=== PATIENT | female | born 1955 | race Caucasian/White ===

== ENCOUNTER 2019-08-19 09:48 | Outpatient (REF) | payer MEDICAID, SELFPAY ==
[2019-08-19 22:08] LABS: Hemoglobin A1C 5.9 % (4.5-6.2)
[2019-08-19 23:26] LABS: Anion Gap 9.5 mmol/L (3-11); BUN 14 mg/dL (7-18); CO2 27.5 mmol/L (21.0-32.0); Calcium 8.3 mg/dL (8.5-10.1); Calculated LDL 123 mg/dL; Chloride 106 mmol/L (98-107); Cholesterol 182 mg/dL (50-200); Glucose 95 mg/dL (70-100); HDL Cholesterol 47 mg/dL (40-60); Potassium 4.4 mmol/L (3.5-5.1); Sodium 143 mmol/L (136-145); Triglyceride 62 mg/dL (30-150)
== END 2019-08-19 10:08 ==
LOC: NCHCN 09:48
PROVIDERS: PCP Family Medicine; Visit Provider Family Medicine
DX: I10 Essential (primary) hypertension (principal); F34.1 Dysthymic disorder; Z00.00 Encounter for general adult medical examination without abnormal findings
CPT/HCPCS: 80048; 80061; 83036

== ENCOUNTER 2021-02-22 23:13 | Outpatient (REF) | payer MEDICAID, SELFPAY ==
[2021-02-22 16:10] LABS: ALT 24 U/L (14-59); AST 20 U/L (15-37); Albumin 3.6 g/dL (3.4-5.0); Alkaline Phosphatase 86 U/L (46-116); Anion Gap 9.6 mmol/L (3-11); BUN 13 mg/dL (7-18); Bilirubin, Total 0.5 mg/dL (0.2-1.0); CO2 26.4 mmol/L (21.0-32.0); CREATININE 0.9 mg/dL (0.55-1.02); Calcium 8.8 mg/dL (8.5-10.1); Chloride 106 mmol/L (98-107); FREE T4 1.29 ng/dL (0.76-1.46); Glucose 88 mg/dL (74-106); Potassium 4.1 mmol/L (3.5-5.1); Sodium 142 mmol/L (136-145); Total Protein 6.6 g/dL (6.4-8.2)
[2021-02-22 16:47] LABS: Calculated LDL 105 mg/dL (<100); Cholesterol 173 mg/dL (<200); HDL Cholesterol 46 mg/dL (40-60); Triglyceride 110 mg/dL (<150); Vitamin B12 346 pg/mL (193-986)
== END 2021-02-22 23:14 | disposition home or self-care (01) ==
LOC: NCHCN 23:13
PROVIDERS: PCP Family Medicine; Visit Provider Family Medicine
DX: E11.9 Type 2 diabetes mellitus without complications (principal); J44.9 Chronic obstructive pulmonary disease, unspecified; G62.9 Polyneuropathy, unspecified
CPT/HCPCS: 80053; 80061; 82607; 84439

== ENCOUNTER 2022-08-03 10:27 | Emergency (ER) | payer MEDICARE, SELFPAY ==
[2022-08-03] VITALS (43 sets, daily range): BP systolic 96–174; BP diastolic 64–99; PULSE 54–79; RESP 11–21; TEMP 36.4; O2SAT 94–100
--- NOTE | 2022-08-03 10:15 | RT.EKG_ITS ---
APPROVED REPORT Exam: Resting ECG Reason for Exam: chest pain Patient Location: E HR:65 bpm ECG Measurements Heart Rate 65 AXIS NV 142 P 62 QRSd 104 QRS 62 QT 394 T 60 QTc 411 Conclusion Sinus rhythm...normal P axis, V-rate 60- 99
--- NOTE | 2022-08-03 10:15 | RT.EKG_ITS ---
APPROVED REPORT Exam: Resting ECG Reason for Exam: chest pain Patient Location: E HR:65 bpm ECG Measurements Heart Rate 65 AXIS ID 80 P 0 QRSd 108 QRS 66 QT 388 T 60 QTc 405 Conclusion Sinus rhythm...normal P axis, V-rate 60- 99
--- NOTE | 2022-08-03 10:45 | DI.CT_ITS ---
Exam(s) CT ABDOMEN PELVIS W EXAM: CT ABDOMEN PELVIS W CLINICAL HISTORY: epigastric and ruq abdominal pain, ttp, no bm 2wk TECHNIQUE: Imaging Protocol: Axial computed tomography images with coronal and sagittal reformatted images were created and reviewed CONTRAST MATERIAL: Intravenous: Omnipaque 350 Contrast volume:100 mL Oral: No COMPARISON: No exams were available for comparison FINDINGS: ABDOMEN: Lung Bases: There is scarring seen in the lung bases. Coronary artery calcifications are present. Liver: Normal density. There is a cyst seen in the left lobe of the liver. No suspicious hepatic mas ses are present. Portal, Superior Mesenteric, and Splenic Veins: Unremarkable. Gallbladder and Biliary Tract: Status post cholecystectomy. No biliary ductal dilatation is present. Pancreas: Normal density, no abnormal calcifications or inflammatory process. Spleen: Normal. Adrenals: No masses seen. Kidneys: Normal size, contour and axis. No radiodense stones or obstructive uropathy. No masses seen. Abdominal Aorta: Abdominal portion non-dilated. Atherosclerosis is present. Bowel: No obstruction or bowel wall thickening. No evidence of appendicitis. There is a moderate amou nt of stool throughout the colon which may reflect constipation. Peritoneal Cavity: No ascites, collection or mesenteric inflammatory response. No free air. Lymph Nodes: Within normal limits. Bones: Within normal limits for the patient's age. Soft Tissues: Unremarkable. PELVIS: Bladder: Symmetric distention, no gross wall thickening. Reproductive Organs: Unremarkable as visualized. Lymph Nodes: Within normal limits. Bones: Within normal limits for the patient's age. IMPRESSION: 1. No acute abdominal or pelvic process. 2. There is a moderate amount of stool in the colon which may reflect constipation. 3. Results of this exam have been verbally communicated with provider. RADIATION DOSE DELIVERED: 1,645.58mGy.cm Total DLP DATA REPOSITORY: All CT scans at this facility are submitted to the National Radiology Data Registry (NRDR) Dose Index Registry (DIR) with the [employer] ([employer]). RADIATION OPTIMIZATION: All CT scans at this facility use at least one of these dose optimization te chniques: automated exposure control; mA and/or kV adjustment per patient size (includes targeted exa ms where dose is matched to clinical indication); or iterative reconstruction.
[2022-08-03 11:06] LABS: Source Nasal/Nares
--- NOTE | 2022-08-03 11:19 | ED.GENADUL_ITS ---
Discharge Plan Disposition Patient Disposition: HOME Condition: Stable Discharge Details Clinical Impression: Abdominal pain, acute, epigastric Primary Care Provider: Fabiola Wu V ED Provider: Derek Esparza Home Meds and New Rx's Prescriptions: Continued bupropion HCl 150 mg Tablet Sustained-Release 12 Hr 150 mg PO BID amlodipine 5 mg Tablet 5 mg PO DAILY aspirin [Aspir-81] 81 mg Tablet,Delayed Release (Dr/Ec) 81 mg PO DAILY furosemide 20 mg Tablet 10 - 20 mg PO DAILY PRN Rx Instructions: 1/2 to 1 tablet daily as needed. albuterol sulfate [ProAir HFA] 90 mcg/actuation Hfa Aerosol Inhaler 2 puff INHALATION Q6H PRN Label Comments: 2 puffs before exercise as needed and then q6h prn if more short of breath oxybutynin chloride 5 mg Tablet 5 - 10 mg PO BID Rx Instructions: 1 tab QAM 2 tab QPM lisinopril 40 mg Tablet 40 mg PO DAILY albuterol sulfate 5 mg/mL Solution For Nebulization 5 mg INHALATION Q4H PRN nicotine (polacrilex) 4 mg Lozenge 4 mg MUCOUS MEMBRANE Q2H PRN Spiriva with HandiHaler 18 mcg Capsule, W/Inhalation Device 1 cap INHALATION DAILY budesonide-formoterol [Symbicort] 80-4.5 mcg/actuation Hfa Aerosol Inhaler 2 puff INHALATION BID methocarbamol 750 mg tablet 1 - 2 tab PO BID PRN Label Comments: TAKE 2 TABLETS BY MOUTH TWICE DAILY NEEDED FOR PAIN tramadol 50 mg tablet 1 tab PO BID PRN gabapentin 600 mg tablet 1,600 mg PO BID Rx Instructions: may take additional 1 tablet daily no abrupt cessation prednisone 20 mg tablet 1 - 4 tab PO DIRECTED Rx Instructions: taper Discontinued ibuprofen 800 MG tablet 800 mg PO TID Qty: 30 0RF Discharge Instructions Additional Instructions: Please use your stool softener. Dose according to label. Please contact your primary care physician to arrange follow-up. Return to the ER immediately for any worsening or new concerning symptoms. Referrals: Fabiola Wu MD [Primary Care Provider] - Medical Decision Making [id number] --67-year-old female with history of COPD, on home O2, here with epigastric abdominal pain since 2 AM, tender to palpation in her upper abdomen and seems worse in her right upper quadrant. Patient does note she believes she had her gallbladder removed for gallstone. Consider acute surgical pathology including bowel obstruction. Plan to obtain CT of the abdomen pelvis. Concern for pancreatitis versus biliary disease. Unlikely cardiac etiology given signs and symptoms. EKG was reviewed and interpreted by me: Q waves are noted inferiorly, no ST elevation, nondiagnostic, sinus rhythm 65 bpm. Please see report. -- Labs reviewed and initial troponin negative. --Patient reassessed and has pain completely resolved. Feeling much better. --CT of the abdomen pelvis was interpreted by radiology: I spoke with Dr. Ramirez, no acute process, he does note significant stool, no bowel obstruction. 1710 --patient reassessed and remained stable and pain-free. Delta troponin negative. Plan for discharge with outpatient follow-up with PCP. Disposition decision was made weighing the risks and benefits of hospitalization versus outpatient treatment, the risk for further decompensation, and the patient's wishes. The patient was stable and requested discharge. Prior to discharge, my usual and customary return precautions were reviewed with the patient - this included follow-up instructions and reason to return to the emergency department if condition worsens, does not improve as expected, or other new concerns arise. Lab Data Lab results reviewed: Yes I reviewed the patient's lab results. Labs: Laboratory Tests Range/Units 08/03/22 08/03/22 08/03/22 10:45 11:00 11:15 WBC (4.4-10.8) 10^3/uL 12.27 H RBC (3.93-5.22) 10^6/uL 4.67 Hgb (11.2-15.7) g/dL 13.5 Hct (36.0-46.0) % 43.2 MCV (80-95) fL 93 MCH (27.0-33.0) pg 28.9 MCHC (32.0-36.0) % 31.3 L RDW (11.7-14.6) % 14.9 H Plt Count (130-400) 10^3/uL 216 MPV (8.0-11.0) fL 8.7 Immature Gran % 0.6 Neutrophils % 62.6 Lymphocytes % 25.6 Monocytes % 9.9 Eosinophils % 1.1 Basophils % 0.2 Nucleated RBC % (0.0-0.3) % 0.0 Absolute Neutrophils (1.2-6.7) 10^3/uL 7.68 H Absolute Lymphocytes (1.2-3.4) 10^3/uL 3.14 Absolute Monocytes (0.1-0.8) 10^3/uL 1.21 H Absolute Eosinophils (0.0-0.7) 10^3/uL 0.13 Absolute Basophils (0.0-0.2) 10^3/uL 0.02 APTT (21.0-27.5) sec Sodium Cancelled Potassium Cancelled Chloride Cancelled Carbon Dioxide Cancelled Anion Gap Cancelled BUN Cancelled Creatinine Cancelled Est GFR (CKD-EPI 2020) Cancelled Glucose Cancelled Calcium Cancelled Magnesium Cancelled Total Bilirubin Cancelled AST Cancelled ALT Cancelled Alkaline Phosphatase Cancelled Troponin I Cancelled Total Protein Cancelled Albumin Cancelled Lipase (73-393) U/L COVID-19 Source Nasal/Nares SARS-CoV-2 (PCR) (Negative) Negative Range/Units 08/03/22 08/03/22 08/03/22 11:15 11:15 14:30 WBC (4.4-10.8) 10^3/uL RBC (3.93-5.22) 10^6/uL Hgb (11.2-15.7) g/dL Hct (36.0-46.0) % MCV (80-95) fL MCH (27.0-33.0) pg MCHC (32.0-36.0) % RDW (11.7-14.6) % Plt Count (130-400) 10^3/uL MPV (8.0-11.0) fL Immature Gran % Neutrophils % Lymphocytes % Monocytes % Eosinophils % Basophils % Nucleated RBC % (0.0-0.3) % Absolute Neutrophils (1.2-6.7) 10^3/uL Absolute Lymphocytes (1.2-3.4) 10^3/uL Absolute Monocytes (0.1-0.8) 10^3/uL Absolute Eosinophils (0.0-0.7) 10^3/uL Absolute Basophils (0.0-0.2) 10^3/uL APTT (21.0-27.5) sec 20.3 L Sodium 143 Potassium 4.3 Chloride 105 Carbon Dioxide 36.5 H Anion Gap 1.5 L BUN 32 H Creatinine 1.1 H Est GFR (CKD-EPI 2020) 55.42 Glucose 83 Calcium 8.9 Magnesium 2.1 Total Bilirubin 0.4 AST 12 L ALT 26 Alkaline Phosphatase 62 Troponin I < 50 < 50 Total Protein 6.1 L Albumin 3.1 L Lipase (73-393) U/L 126 COVID-19 Source SARS-CoV-2 (PCR) (Negative) HPI General Mode of arrival: EMS . Date/Time Provider Initiated Documentation: 08/03/22 10:29 . Limitations to Documentation: no limitations . Information obtained by: patient . HPI Narrative: 67-year-old female presents with chief complaint of abdominal pain. Patient notes she went to bed feeling fine and woke up around 2 AM with epigastric abdominal pain that felt like heartburn. Pain was initially moderate to severe and has persisted. Now less severe. Intensity is currently rated 6/10. Currently described as a pressure in her upper abdomen. No radiation. Patient notes she feels like she is bloated she has no associated shortness of breath. She does note chronic unchanged shortness of breath and uses home O2 2 L at baseline. Patient does note chronic lower extremity edema. She states she has not had a bowel movement in 2 to 3 weeks. This apparently is typical for her. Patient was seen today at primary care office who was concerned about potential for chest pain. She was given nitroglycerin x4 by clinic and EMS with no relief of symptoms.. Related Data Home Medications Medication Instructions Recorded Confirmed albuterol sulfate 5 mg/mL(0.5 %) 5 mg inhalation Q4H PRN 03/26/20 08/03/22 solution for nebulization albuterol sulfate 90 mcg/actuation 2 puff inhalation Q6H PRN 03/26/20 08/03/22 aerosol inhaler (ProAir HFA) amlodipine 5 mg tablet 5 mg PO DAILY 03/26/20 08/03/22 aspirin 81 mg tablet,delayed 81 mg PO DAILY 03/26/20 08/03/22 release (Aspir-) budesonide-formoterol HFA 80 2 puff inhalation BID 03/26/20 08/03/22 mcg-4.5 mcg/actuation aerosol inhaler (Symbicort) bupropion HCl 150 mg tablet,12 hr 150 mg PO BID 03/26/20 08/03/22 sustained-release furosemide 20 mg tablet 10 - 20 mg PO DAILY PRN 03/26/20 08/03/22 lisinopril 40 mg tablet 40 mg PO DAILY 03/26/20 08/03/22 nicotine (polacrilex) 4 mg buccal 4 mg mucous membrane Q2H PRN 03/26/20 03/26/20 lozenge oxybutynin chloride 5 mg tablet 5 - 10 mg PO BID 03/26/20 08/03/22 tiotropium bromide 18 mcg capsule 1 cap inhalation DAILY 03/26/20 08/03/22 with inhalation device (Spiriva with HandiHaler) gabapentin 600 mg tablet 1,600 mg PO BID 08/03/22 08/03/22 methocarbamol 750 mg tablet 1 - 2 tab PO BID PRN 08/03/22 08/03/22 prednisone 20 mg tablet 1 - 4 tab PO DIRECTED 08/03/22 08/03/22 tramadol 50 mg tablet 1 tab PO BID PRN 08/03/22 08/03/22 Allergies Allergy/AdvReac Type Severity Reaction Status Date / Time varenicline [From Chantix] Allergy Unknown Verified 08/03/22 11:39 General Stated Complaint: Chest Pain YUNG: 2 Review of Systems All systems reviewed & are unremarkable except as noted in HPI and below Constitutional Constitutional: Denies fever(s) Cardiovascular Cardiovascular: Reports as per HPI, Denies chest pain, Reports leg edema and Reports dyspnea Respiratory Respiratory: Reports dyspnea Gastrointestinal Gastrointestinal: Reports as per HPI PFSH All Active Problems (Updated 08/03/22 @ 17:07 by Derek Esparza MD) Abdominal pain, acute, epigastric (Acute) Medical History Bronchitis, acute Carpal tunnel syndrome, bilateral upper limbs Chest pain COPD (chronic obstructive pulmonary disease) Cough Depression DYSTHYMIC DISORDER Dysthymic disorder Easy bruising HTN (hypertension) HYPERTENSION-CHC Left knee pain Lower back pain Mixed incontinence Obesity Palpitations Parotitis Peripheral neuropathy Prediabetes Right leg pain Shoulder pain, bilateral Swelling, limb Thyroid nodule TOBACCO USSE DISORDER UNSP JOINT D/O ARM Unspecified disorder of upper arm joint URINARY INCONTINENCE Social History Smoking/Tobacco Use Status: Current every day Tobacco Type: cigarettes Smoking risk assessment performed?: Yes Alcohol Intake: never Drug use: Never Substance use type: does not use Household members: children Housing: house Number of Children: 3 number of grandchildren: 10 current occupation: N/A What type of physical activity do you participate in: walking and independent ambulation Do you feel safe at home: Yes Do you feel safe in your relationship?: Yes Exam Const General: cooperative and no acute distress HENMT Head: normocephalic and atraumatic Mouth: moist mucous membranes Eyes Conjunctivae: normal conjunctivae Sclera: normal sclerae Neck Neck: trachea midline and supple Resp Auscultation: clear to auscultation bilaterally, no rales, no rhonchi and no wheezes Cardio Rate: regular rate and not tachycardic Rhythm: regular rhythm Heart Sounds: no gallops, no murmurs and no rubs Bruits: no abdominal aortic bruits GI Palpation: soft, not firm, no guarding, no masses, not rigid and tender in the epigastrum and in the RUQ Skin General skin exam: no rashes or lesions noted Neuro General: patient alert, patient awake, patient oriented x3 and tone normal Extrem General: no calf tenderness and edema Laterality: bilateral (1+ pitting shins) Psych Appearance: grossly normal Mental Status: mental status grossly normal Speech and Movement: speech and movement normal Course Vital Signs Vital signs: Vital Signs Temperature 36.4 C L 08/03/22 10:23 Pulse 62 08/03/22 10:23 Respiratory Rate 14 08/03/22 10:23 Blood Pressure 151/90 H 08/03/22 10:23 Pulse Oximetry 96 08/03/22 10:23 Temperature 36.4 C L 08/03/22 10:23 Temperature Source Skin 08/03/22 10:23 Pulse 62 08/03/22 10:23 Respiratory Rate 16 08/03/22 11:07 Respiratory Effort 08/03/22 11:07 Respiratory Depth Normal 08/03/22 11:07 Respiratory Pattern Normal 08/03/22 11:07 Blood Pressure 151/90 H 08/03/22 10:23 Pulse Oximetry 96 08/03/22 10:23 Oxygen Delivery Method Room Air 08/03/22 10:23 Oxygen Flow Rate 0 08/03/22 10:23 Pain Level 6 08/03/22 10:23 Lab/Test Results Lab/Test Results: Laboratory Tests Range/Units 08/03/22 08/03/22 10:45 11:00 Sodium Cancelled Potassium Cancelled Chloride Cancelled Carbon Dioxide Cancelled Anion Gap Cancelled BUN Cancelled Creatinine Cancelled Est GFR (CKD-EPI 2020) Cancelled Glucose Cancelled Calcium Cancelled Magnesium Cancelled Total Bilirubin Cancelled AST Cancelled ALT Cancelled Alkaline Phosphatase Cancelled Troponin I Cancelled Total Protein Cancelled Albumin Cancelled COVID-19 Source Nasal/Nares
[2022-08-03 11:24] LABS: Abs Immature Grans 0.07 10^3/uL (0.0-0.06); Absolute Basophil Count 0.02 10^3/uL (0.0-0.2); Absolute Eosinophil Count 0.13 10^3/uL (0.0-0.7); Absolute Lymphocyte Count 3.14 10^3/uL (1.2-3.4); Absolute Monocyte Count 1.21 10^3/uL (0.1-0.8); Basophils % 0.2; Eosinophils % 1.1; HCT 43.2 % (36.0-46.0); HGB 13.5 g/dL (11.2-15.7); Immature Grans % 0.6; Lymphocytes % 25.6; MCH 28.9 pg (27.0-33.0); MCHC 31.3 % (32.0-36.0); MCV 93 fL (80-95); MPV 8.7 fL (8.0-11.0); Monocytes % 9.9; Neutrophils % 62.6; Platelet Count 216 10^3/uL (130-400); RBC 4.67 10^6/uL (3.93-5.22); RDW 14.9 % (11.7-14.6); RDW-SD 50.9 fL; WBC 12.27 10^3/uL (4.4-10.8)
[2022-08-03 11:27] LABS: Absolute Neutrophil Count 7.68 10^3/uL (1.2-6.7)
[2022-08-03 11:37] LABS: PTT Activated 20.3 sec (21.0-27.5)
[2022-08-03 11:43] LABS: ALT 26 U/L (14-59); AST 12 U/L (15-37); Albumin 3.1 g/dL (3.4-5.0); Alkaline Phosphatase 62 U/L (46-116); Anion Gap 1.5 mmol/L (3-11); BUN 32 mg/dL (7-18); Bilirubin, Total 0.4 mg/dL (0.2-1.0); CO2 36.5 mmol/L (21.0-32.0); CREATININE 1.1 mg/dL (0.55-1.02); Calcium 8.9 mg/dL (8.5-10.1); Chloride 105 mmol/L (98-107); Estimated GFR 55.42 (mL/min/1.73m2); Glucose 83 mg/dL (74-106); Lipase 126 U/L (73-393); Magnesium 2.1 mg/dL (1.8-2.4); Potassium 4.3 mmol/L (3.5-5.1); Sodium 143 mmol/L (136-145); Total Protein 6.1 g/dL (6.4-8.2); Troponin I < 50 ng/L (<or=60)
[2022-08-03 11:48] LABS: COVID-19 PCR Negative (Negative)
--- NOTE | 2022-08-03 12:14 | NUR.NOTE ---
Nursing Note: PT UP TO BSC, RAC INFILTRATED & D/C'D, PROVIDER AWARE, CONT. TO MONITOR.
[2022-08-03] MEDS: Omnipaque 350 MG/ML 100 ML BTL IJ (12:29)
--- NOTE | 2022-08-03 12:45 | NUR.NOTE ---
Nursing Note:PT RETURN FROM DI, TOLERATED SCAN WELL, NO NEW COMPLAINTS, NO PAIN AT THIS TIME, CONT. TO MONITOR.
[2022-08-03 14:54] LABS: Troponin I < 50 ng/L (<or=60)
== END 2022-08-03 17:37 | disposition home or self-care (01) ==
PROVIDERS: Emergency Provider Student in an Organized Health Care Education/Training Program; PCP Family Medicine
DX: R10.13 Epigastric pain (principal); J44.9 Chronic obstructive pulmonary disease, unspecified; Z99.81 Dependence on supplemental oxygen; Z20.822 Contact with and (suspected) exposure to COVID-19; I10 Essential (primary) hypertension; F17.210 Nicotine dependence, cigarettes, uncomplicated; R10.811 Right upper quadrant abdominal tenderness; R07.9 Chest pain, unspecified
CPT/HCPCS: 36415; 80053; 83690; 87635; 93005; 99285; 74177; 83735; 84484; 85025; 85730; 93010; 99284; J3490